=== PATIENT | male | born 1950 | race Caucasian/White ===

== ENCOUNTER → 2017-03-11 | Outpatient (CLI) | payer OTHER, MEDICARE | LOC: CIMAGING 15:55 | PROVIDERS: ATTEND Internal Medicine | DX: J90 Pleural effusion, not elsewhere classified (principal) | CPT/HCPCS: 71020; G0463 ==

== ENCOUNTER 2017-03-14 14:06 | Observation (INO) | payer OTHER, MEDICARE ==
[2017-03-14] MEDS ORDERED: ONDANSETRON DISINTEGRATING 4 MG TAB PO PRN (15:21)
[2017-03-14] MEDS ORDERED: ACETAMINOPHEN 325 MG TAB PO PRN (15:21)
[2017-03-14] MEDS ORDERED: ONDANSETRON 4 MG/2 ML VIAL IVP PRN (15:21)
--- NOTE | 2017-03-14 16:37 | GHP ---
[f rep st] HISTORY AND PHYSICAL DATE OF ADMISSION: 03/14/2017 CHIEF COMPLAINT: Fevers, anemia. REPORT ENDED /[id number]/MODL
[2017-03-14] MEDS ORDERED: NS 1,000 ML IV SCH (16:45)
--- NOTE | 2017-03-14 17:43 | GHP ---
[f rep st] HISTORY AND PHYSICAL DATE OF ADMISSION: 03/14/2017 CHIEF COMPLAINT: Fevers, anemia. HISTORY OF PRESENT ILLNESS: A pleasant 66-year-old male with prostate cancer, Mukund 7, history of melanoma, basal cell and squamous cell carcinoma, who was sent over from his primary care physician, Dr. Roman, with 2 weeks of low-grade fevers and anemia. He has felt "punky," over the last 2 weeks. Initially had sinus headache and congestion. Took some Advil and that resolved. Over the last couple of weeks he has had a low-grade temperature; 101 in clinic. Nonproductive cough started a couple days ago and was started on Z-ilan. Also, increased shortness of breath with walking over this time period, but no CP. Has had some PND over the last 2 weeks, no leg swelling. No nausea, vomiting, diarrhea. No melena or hematochezia. No weight loss. Has nocturia 4-5 times a night. No recent travel. Only pet is a dog. 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 Has had a colonoscopy within the last 3 years that was normal. No history of tobacco smoking. The patient has a known heart murmur. REVIEW OF SYSTEMS: I completed a 10-point review of systems, negative except as noted in the HPI. PAST MEDICAL HISTORY: 1. Meningitis. 2. Squamous cell skin cancer, basal cell skin cancer, melanoma, status post resection behind right ear. 3. Prostate cancer, Mukund 7. Was scheduled for prostatectomy next week, PSA 10 PAST SURGICAL HISTORY: Partial amputation of 1st right finger, tonsillectomy. HOME MEDICATIONS: Doxazosin and a probiotic. SOCIAL HISTORY: Lives in [place] with his . He works in construction. Remote marijuana when he was young. Beer, anywhere from 1-4 a week. FAMILY HISTORY: Brother with heart valve issues. Uncle with prostate cancer. Mother with basal cell skin cancer. ALLERGIES: No known drug allergies. PHYSICAL EXAMINATION: VITAL SIGNS: Temperature: Afebrile here. Blood pressure 159/80, heart rate is 89, respirations 18, 95% on room air. GENERAL: Well appearing, lying up in bed, is mildly pale. HEENT: PERRLA. Mild conjunctival pallor. Oropharynx clear. CV: Regular rate and rhythm. +2 murmur is present. LUNGS: No crackles, wheezing. ABDOMEN: Soft, nontender, nondistended. Positive bowel sounds. : No suprapubic tenderness. MUSCULOSKELETAL: 5/5 upper and lower extremity strength. No joint tenderness, synovitis, or erythema. NEURO: 2 through 12 intact. SKIN: Warm, dry, no rash or ulcerations. LAD: Positive left submandibular lymphadenopathy. PSYCH : Alert and oriented x3. Very pleasant, smiling during interview. LABORATORY DATA: WBC 4.6, hemoglobin 8.6, hematocrit 25, platelets 310. This is down from 10/06/2014, which H and H were 14 and 42. D-dimer is negative. Sodium 130, sodium 02/2017 was 139. Potassium 4.6, chloride 105, carbon dioxide 22, BUN 29. Creatinine is 1.1, baseline 0.9. Total bilirubin 1.5, AST 23, ALT 51, alk phos 97, total protein 6.5, albumin 4. Iron studies pending. LDH pending. Haptoglobin pending. CRP is pending. SPEP pending. PSA: 03/2016, 8.9; 03/14/2017, 10.9. TSH 2.83. Vitamin B12 and folate are pending. Urine 02/2018 with trace bacteria. Chest x-ray 03/11/2017: Personally reviewed by me. Minimal blunting of costophrenic angles. ASSESSMENT/PLAN: 1. Fevers: afebrile here and no leukocytosis. UA, CXR negative. Blood cultures were already drawn. Differential includes infection, cancer, clot. D- dimer was negative. He has had a recent colonoscopy. Consider CT scan to evaluate for mass. I have consulted Dr. Guo to evaluate patient in the morning. No antibiotics warranted at this time. Check an echocardiogram to rule out endocarditis. 2. Normocytic anemia: ddx: blood loss, hemolysis versus bone marrow suppression. LDH, haptoglobin, coags are pending. Check peripheral smear. Denies any acute blood loss. Recent colonoscopy was negative. SPEP is pending , as well as B12, folate. LFTs within normal. Iron studies pending. No emergent transfusion needs. 3. History of Clostridium difficile: After clindamycin a year ago. No diarrhea now. 4. SOB: URI? Mild effusion, edema on exam. BNP, TTE pending 5. Diet: Regular. 6. Deep venous thrombosis prophylaxis: Sequential compression device. Disposition: Patient warrants observation admission given anemia and fevers requiring further testing. /[id number]/MODL MTDD
[2017-03-14 18:46] LABS: HEMATOCRIT 22.3 % (40.0-51.0)
[2017-03-14 18:54] LABS: APTT 28.8 SEC (23.0-38.0)
[2017-03-14] MEDS ORDERED: BENZONATATE 100 MG CAP PO PRN (19:14)
[2017-03-14 19:19] LABS: INR 1.13 (0.83-1.16); PROTIME(PATIENT) 14.4 SEC (12.0-15.0)
[2017-03-14] MEDS ORDERED: TERAZOSIN 10 MG PO SCH (21:00)
[2017-03-14] MEDS ORDERED: TERAZOSIN HCL 10 MG PO SCH (21:00)
[2017-03-14] MEDS ORDERED: AZITHROMYCIN 250 MG TAB PO SCH (21:00)
--- NOTE | 2017-03-14 21:24 | GCON ---
[f rep st] CONSULTATION DATE OF CONSULTATION: 03/14/2017 HISTORY OF PRESENT ILLNESS: The patient is a very pleasant 66-year-old male, who has been seen by my colleague, Dr. Kearney, for history of melanoma in 1998, presenting as cervical adenopathy. This wa s dissected, and he received aly interferon. There was no known primary, and there was no evidence of recurrence. He also has a history of prostate cancer diagnosed a number of years ago, which has b lukas observed. However, he is scheduled for a radical prostatectomy in the near future. However, abo mo 3 weeks ago, he developed a cough and low-grade fevers. He has been treated with a Z-Leland, but the cough has been persistent. In the office today with Dr. Roman, a CBC showed a significant anemia. H is white count was 4.67, with 76% neutrophils. Hemoglobin was 8.6, hematocrit 25.1, MCV 91.3, and pl atelets normal at 310. A prior hemoglobin from September of 2014 was mildly low at 14.1. He says prior to 3 or 4 weeks ago, he had felt really pretty good. He continues to work on a regular basis. He jacy ed any new pains and denied any weight loss. His energy level had been quite good. PAST MEDICAL HISTORY: Significant for melanoma and prostate cancer. There is a history, I believe, of a vertebral fracture and a traumatic amputation of the tip of one of his fingers within the last y ear. FAMILY HISTORY: Noncontributory. REVIEW OF SYSTEMS: Negative for 10 systems except as discussed in the HPI. PHYSICAL EXAMINATION: VITAL SIGNS: Currently, he is a pleasant, alert male, coughing frequently. V ITAL SIGNS: Blood pressure 159/80, heart rate 89, O2 sat 95%, temperature currently 98.3. HEENT: H e is not icteric. NECK: I detect no cervical adenopathy. He has a well-healed right neck dissectio n, without evidence of recurrence. No axillary or inguinal adenopathy is palpable. LUNGS: Show pre tty significant inspiratory and expiratory wheezes. CARDIAC: Exam is unremarkable. ABDOMEN: Obese , without obvious organomegaly. EXTREMITIES: Show no edema. SKIN: Exam is unremarkable. ADDITIONAL LABORATORY EXAMINATION: Shows a normal TSH. Ferritin, B12, and folate are pending. His last PSA that I can detect was 10.9. Sedimentation rate today is 74. A chest x-ray done 2 days ago shows possibly minimal costophrenic gutter blunting. The lungs are otherwise clear. I should note t hat the patient is a lifelong nonsmoker, although has smoked marijuana in the past. IMPRESSION: Patient with significant upper respiratory infection symptoms over the last 2-3 weeks wi th a low-grade fever, now presenting with normochromic normocytic anemia. He has a high sedimentatio n rate, and certainly a component of inflammation and marrow suppression from this could be playing a role. His white cell count and platelets are normal. Evaluation including iron studies and B12 is pending. I would like to add a reticulocyte count, serum protein electrophoresis, serum free light c michelle analysis, and a direct Radha. The respiratory panel including influenza is pending. If the si tuation does not clarify itself, I would have a low threshold for a CT scan of the chest. Our servic e will follow with you. /[id number]/MODL
[2017-03-14 23:38] VITALS: O2SAT 95
[2017-03-15] MEDS ORDERED: HYDROcodone/CPM TUSSIONEX 5 ML UDSYR PO PRN (01:11)
[2017-03-15] MEDS ORDERED: GUAIFENESIN/DM 10 ML UDCUP PO PRN (01:11)
[2017-03-15 05:40] LABS: HEMATOCRIT 23.2 % (40.0-51.0); HEMOGLOBIN 8.2 g/dL (13.7-17.5); MEAN CELL HEMOGLOBIN 32.5 pg (27.9-34.1); MEAN CELL HEMOGLOBIN CONCENTR. 35.3 g/dL (32.4-36.7); MEAN CELL VOLUME 92.1 fL (81.5-99.8); RED BLOOD CELL COUNT 2.52 10^6/uL (4.40-6.38); RED CELL DISTRIBUTION WIDTH 16.9 % (11.5-15.2)
[2017-03-15] MEDS ORDERED: Herbals/Supplements -Info Only PO SCH (09:00)
[2017-03-15] MEDS ORDERED: CHOLECALCIFEROL VIT D3 1,000 UNITS TAB PO SCH (09:00)
[2017-03-15] MEDS ORDERED: ENOXAPARIN 40 MG/0.4 ML SYR SC SCH (09:00)
--- NOTE | 2017-03-15 10:47 | SOAPPROG ---
SOAP Progress Note Assessment/Plan: Assessment: 1. URI, Rhinovirus 2.Normochromic, normocytic anemia, underproduction, iron stores ok, zoila neg, b12 ok. I think this is most consistent with his intercurrent illness, would repeat cbc with pcp in 3 weeks or so, if not better will need further eval Plan:See above, ? home 03/15/17 10:43 Subjective: Cough Objective: Vital Signs Temp Pulse Resp BP Pulse Ox 97.9 F 75 16 146/59 H 95 03/15/17 08:00 03/15/17 08:00 03/15/17 08:00 03/15/17 08:00 03/15/17 08:00 Microbiology 03/14/17 16:40 Respiratory Panel (PCR) - Final Nasal, Sinus - Swab Human Rhinovirus/Enterovirus Laboratory Results 03/15/17 05:14 03/14/17 03/15/17 03/16/17 05:59 05:59 05:59 Intake Total 1854 Balance 1854 PT 14.4 SEC (12.0-15.0) 03/14/17 18:30 INR 1.13 (0.83-1.16) 03/14/17 18:30 Physical Exam - Physical Exam General Appearance: alert
[2017-03-15 12:21] VITALS: BP 147/72; PULSE 60; RESP 18; TEMP 98.2
--- NOTE | 2017-03-15 15:51 | ECHO ---
[email or web address] [address] [address] Main: [phone] Fax: [email or web address] Echocardiogram Name: VENICE MONSON MR#: [id number] Study Date: 03/15/2017 Study Time: 10:30 AM Date of : 1950 Age: 66 year(s) Height: ( ) Weight: ( ) BSA: Gender: Male Examination: Echo Indication: Fevers/eval for endocarditis Image Quality: Contrast: Requested by: Tonya Loza BP: 146 mmHg/59 mmHg Heart Rate: Rhythm: Indication: Fevers/eval for endocarditis Procedure Staff Vector Control Specialist: Gayatri Gonzales Reading Physician: Liz Heller Requesting Provider: Conclusions: Normal size left ventricle. No LV hypertrophy. Normal global systolic LV function. The ejection fraction is estimated to be 65-70 %. No regional wall motion abnormality. Mildly dilated right ventricle. Normal RV function. Mild mitral valve regurgitation is present. The aortic valve is normal in appearance and function. Small to moderate pericardial effusion. No cardiac tamponade No obvious valvular vegetation Measurements: Chambers Valvular Assessment AV/MV Valvular Assessment TV/PV Normal Normal Normal Name Value Range Name Value Range Name Value Range EF Range: 65-70 % Continued Measurements: Findings: Left Ventricle: Normal size left ventricle. No LV hypertrophy. Normal global systolic LV function. The ejection fraction is estimated to be 65-70 %. No regional wall motion abnormality. Right Ventricle: Mildly dilated right ventricle. Normal RV function. There is a moderator band noted in the right ventricle. Patient: EVNICE MONSON Study Date: 03/15/2017 Page 1 of 2 10:30 AM Left Atrium: The left atrium is normal in size. Right Atrium: The right atrium is normal in size. Mitral Valve: The mitral valve is normal in appearance and function. Mild mitral valve regurgitation is present. Aortic Valve: The aortic valve is normal in appearance and function. Tricuspid Valve: The tricuspid valve is normal in appearance and function. Trivial tricuspid valve regurgitation. Pulmonic Valve: The pulmonic valve is normal in appearance and function. Aorta: The aorta is normal. Pericardium: Small to moderate pericardial effusion. Slight RA collapse.. (No Signature Object) Patient: VENICE MONSON Study Date: 03/15/2017 Page 2 of 2 10:30 AM D:_[id number]
[2017-03-15 17:20] LABS: IG KAPPA FREE LIGHT CHAIN 1.91 mg/dL; IG LAMBDA FREE LIGHT CHAIN 1.51 mg/dL; KAPPA/LAMBDA RATIO 1.26
--- NOTE | 2017-03-15 17:39 | ASDISCHSUM ---
Discharge Information Plan Status:Home with No Needs Medically Cleared to Leave: Discharge Date:03/15/2017 01:31 PM CM D/C Disposition:Home, Routine, Self-Care ADT D/C Disposition:Home, Routine, Self-Care Projected Discharge Date:03/15/2017 01:31 PM Transportation at D/C: Discharge Delay Reason: Follow-Up Date:03/15/2017 01:31 PM Discharge Slot: Final Diagnosis: Placement Information Patient Contact Information Contact Name:NILDA Relationship: Address:[address] City:[place] Alternate Phone: [facility]/Zip Code:[place] [address] Email: Financial Information Financial Class: Primary Plan Desc:MEDICARE OUTPATIENT Primary Plan Number:[id number] Secondary Plan Desc:[employer]/MDR SUPPLEMENT Secondary Plan Number:[id number] Assessment Information Intervention Information Intervention Type:*RICHTER-Signed Date of Service:03/15/2017 10:08 AM Patient Type:Observation Staff Member:Kelsey Waters Hours: Discipline: Severity: Comment:
--- NOTE | 2017-03-15 17:43 | GDS ---
[f rep st] DISCHARGE SUMMARY DISCHARGE DIAGNOSES: Include: 1. Acute viral upper respiratory infection secondary to rhinovirus/enterovirus. 2. Prostate cancer. Baxter 7. Anticipate prostatectomy next week. 3. History of meningitis. 4. History of melanoma, status post resection. 5. Normocytic anemia, under evaluation. HISTORY OF PRESENT ILLNESS: A 66-year-old male with a history of prostate cancer, presents with comp laints of persistent shortness of breath over the course of the last several weeks. For details of nelly plaza's initial presentation, please see the History and Physical dated 03/14/2017. CONSULTATIVE SERVICES: Include Oncology. PROCEDURES: On 03/14/2017, patient had a transthoracic echocardiogram which shows normal LV size and function. HOSPITAL COURSE: By issue: 1. Shortness of breath. Patient had chest x-ray imaging on the outside that was negative for any in filtrates. We did identify a viral pathogen to explain his symptoms. He will be discharged with [facility] portive care and outpatient followup by [facility]. We have no concern for cardiac cause of his shortness of breath, based on his normal transthoracic echocardiogram. 2. Prostate cancer. He is being followed closely by [facility] and is anticipating prostatectomy next wee k. 3. Normocytic, normochromic anemia. [facility] is investigating this. Patient did not meet transfusion c carina during this hospital stay. He will follow in the outpatient clinic. MEDICATIONS AT THE TIME OF TRANSFER: Please reference the med rec printed on 03/15/2017 FOLLOWUP APPOINTMENTS: Include with [facility] for followup of his prostate cancer and normocytic anemia. PENDING STUDIES: At the time of this dictation, are none. TIME SPENT: I spent greater than 30 minutes in the planning and coordination of this discharge. /[id number]/MODL
== END 2017-03-15 13:31 | disposition home or self-care (01) ==
LOC: F3E 15:07
PROVIDERS: ADMIT Hospitalist; ATTEND Hospitalist
DX: J00 Acute nasopharyngitis [common cold] (principal); D64.9 Anemia, unspecified; C61 Malignant neoplasm of prostate; Z85.820 Personal history of malignant melanoma of skin
CPT/HCPCS: 93306; G0378; G0379; 83010-90

== ENCOUNTER → 2017-03-22 | Outpatient (CLI) | payer OTHER, MEDICARE ==
[~2017-03-22] MED LIST: IOPAMIDOL (ISOVUE-300) 100 ML BTL ONE
== END ==
LOC: CIMAGING 10:17
PROVIDERS: ATTEND Internal Medicine
DX: R59.0 Localized enlarged lymph nodes (principal); R91.1 Solitary pulmonary nodule; I31.3 Pericardial effusion (noninflammatory); I25.10 Atherosclerotic heart disease of native coronary artery without angina pectoris; D64.9 Anemia, unspecified; Z85.820 Personal history of malignant melanoma of skin; Z85.46 Personal history of malignant neoplasm of prostate
CPT/HCPCS: 71260; 74177; Q9967

== ENCOUNTER 2017-04-25 09:59 | Day surgery (SDC) | payer OTHER, MEDICARE ==
[2017-04-25] MEDS ORDERED: CLINDAMYCIN 900 MG/DEXTROSE 50 ML IV ONE (10:14)
[2017-04-25] MEDS ORDERED: LR 1,000 ML IV ONE (10:20)
[2017-04-25 10:42] VITALS: PULSE 63
[2017-04-25] MEDS ORDERED: cefOXitin SODIUM 2 GM in D5W 100 ML IV ONE (11:30)
--- NOTE | 2017-04-25 12:28 | PDANEPAE ---
ANE History of Present Illness supraclavicular LN biopsy ANE Past Medical History - Cardiovascular History Hx Hypertension: No Hx Arrhythmias: No Hx Chest Pain: No Hx Coronary Artery / Peripheral Vascular Disease: No Hx CHF / Valvular Disease: No Hx Palpitations: No - Pulmonary History Hx COPD: No Hx Asthma/Reactive Airway Disease: No Hx Recent Upper Respiratory Infection: No Hx Oxygen in Use at Home: No Hx Sleep Apnea: No Sleep Apnea Screening Result - Last Documented: Negative Pulmonary History Comment: chronic bronchitis-Rhinovirus late Feb - Neurologic History Hx Cerebrovascular Accident: No Hx Seizures: No Hx Dementia: No Neurologic History Comment: 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 - Endocrine History Hx Diabetes: No - Renal History Hx Renal Disorders: No Renal History Comment: nocturia x3-4 . will have prostatectomy in future. - Liver History Hx Hepatic Disorders: No - Neurological & Psychiatric Hx Hx Neurological and Psychiatric Disorders: No - Cancer History Hx Cancer: Yes Cancer History Comment: prostate. cutaneous melanoma - Congenital Disorder History Hx Congenital Disorders: No - GI History Hx Gastrointestinal Disorders: No - Other Health History Other Health History: enlarged lymph node-R supraclavicluar - Chronic Pain History Chronic Pain: No - Surgical History Prior Surgeries: prostate bx-w/GA. excision lymph R neck area-1997. finger- tip surgery. T and A child ANE Review of Systems Review of systems is: negative Review of Systems: - Exercise capacity METS (RN): 4 METS ANE Patient History - Allergies Allergies/Adverse Reactions: Penicillins Allergy (Verified 04/25/17 11:20) Hives - Home Medications Home medications: home medication list seen and reviewed Home Medications: Cholecalciferol Vit D3 [Vitamin D3 (*)] 1,000 units PO DAILY 03/14/17 [Last Taken 04/24/17] Herbals/Supplements -Info Only 1 ea PO DAILY 03/14/17 [Last Taken 04/24/17] Terazosin HCl 10 mg PO HS 03/14/17 [Last Taken 04/24/17] - NPO status NPO Since - Liquids (Date): 04/25/17 NPO Since - Liquids (Time): 08:30 NPO Since - Solids (Date): 04/24/17 NPO Since - Solids (Time): 19:00 - Anes Hx Anes Hx: no prior problems - Smoking Hx Smoking Status: Never smoked - Family Anes Hx Family Anes Hx: none ANE Labs/Vital Signs - Vital Signs Blood Pressure: 155/68 Heart Rate: 63 Respiratory Rate: 14 O2 Sat (%): 96 Height: 177.8 cm Weight: 95.254 kg ANE Physical Exam - Airway Neck exam: FROM Mallampati Score: Class 1 Mouth exam: normal dental/mouth exam - Pulmonary Pulmonary: no respiratory distress - Cardiovascular Cardiovascular: regular rate and rhythym - ASA Status ASA Status: II
[2017-04-25] MEDS ORDERED: LIDOCAINE 1% 300 MG/30 ML SDV ONE (12:39)
[2017-04-25] MEDS ORDERED: BUPIVACAINE 0.5% 30 ML SDV ONE (12:40)
[2017-04-25] MEDS ORDERED: SODIUM BICARBONATE 10 MEQ/10 ML SYR IVP ONE (12:40)
--- NOTE | 2017-04-25 12:46 | PDHPUP ---
History & Physical Update H&P update statement: This history and physical update is based on an assessment of the patient which was completed after admission or registration (within 24 hours), but prior to the surgery/procedure. H&P update: H&P reviewed & patient examined, no change in patient's condition since H&P completed
[2017-04-25] MEDS ORDERED: ONDANSETRON 4 MG/2 ML VIAL ONE (13:01)
[2017-04-25] MEDS ORDERED: DEXAMETHASONE 4 MG/ML VIAL ONE (13:01)
[2017-04-25] MEDS ORDERED: LIDOCAINE 2% 100 MG/5 ML SYR ONE (13:01)
[2017-04-25] MEDS ORDERED: fentaNYL 100 MCG/2 ML INJ ONE (13:02)
[2017-04-25] MEDS ORDERED: PROPOFOL 200 MG/20 ML VIAL ONE (13:02)
[2017-04-25] MEDS ORDERED: BUPIVACAINE 0.25% 30 ML SDV ONE (13:37)
--- NOTE | 2017-04-25 13:58 | POSTANESTH ---
Post Anesthetic Evaluation Cardiovascular Status: Normal, Stable, Similar to Pre-Op Cond Respiratory Status: Normal, Stable, Similar to Pre-op Cond. Level of Consciousness/Mental Status: Can Participate in Eval, Mildly Sleepy, Arousable Pain Control: Adequate, Prn Tx Ordered Nausea/Vomiting Control: Adequate, Prn Tx Ordered Complications Possibly Related to Anesthesia: None Noted
--- NOTE | 2017-04-25 13:59 | POSTOPPROG ---
Post Op Note Date of Operation: 04/25/17 Surgeon: Guy Rain Anesthesiologist: Dipti Anesthesia: IV Sedation, LMA Pre-op Diagnosis: Hx of melanoma Post-op Diagnosis: same Procedure: Right supraclavicular LN biopsy Findings: small node excised completely Inf/Abcess present in the surg proc area at time of surgery?: No EBL: Minimal Specimen(s): Right supraclavicular lymph node
[2017-04-25] MEDS ORDERED: DEXAMETHASONE 4 MG/ML VIAL IVP PRN (14:10)
[2017-04-25] MEDS ORDERED: OXYCODONE/APAP 5/325 TAB PO PRN (14:10)
[2017-04-25] MEDS ORDERED: HYDROCODONE/APAP 5/325 TAB PO PRN (14:10)
[2017-04-25] MEDS ORDERED: PROMETHAZINE HCL 25 MG/ML INJ IVP PRN (14:10)
[2017-04-25] MEDS ORDERED: HYDROmorphONE/DILAUDID 1 MG/ML INJ IVP PRN (14:10)
[2017-04-25] MEDS ORDERED: ACETAMINOPHEN 500 MG TAB PO PRN (14:10)
[2017-04-25] MEDS ORDERED: ONDANSETRON 4 MG/2 ML VIAL IVP PRN (14:10)
[2017-04-25] MEDS ORDERED: fentaNYL 100 MCG/2 ML INJ IVP PRN (14:10)
[2017-04-25] MEDS ORDERED: MEPERIDINE 25 MG/ML SYR IVP PRN (14:10)
[2017-04-25] MEDS ORDERED: LABETALOL HCL 5 MG/ML 20 ML MDV IVP PRN (14:10)
[2017-04-25] MEDS ORDERED: NALOXONE HCL 0.4 MG/ML INJ IVP PRN (14:10)
[2017-04-25 14:24] VITALS: RESP 15; TEMP 99
[2017-04-25 14:50] VITALS: BP 139/66; O2SAT 94
--- NOTE | 2017-04-26 14:46 | GOP ---
[f rep st] OPERATIVE REPORT DATE OF OPERATION: 04/25/2017 SURGEON: Guy Rain MD HOSPITALITY COORDINATOR: None. ANESTHESIA: General endotracheal. ANESTHESIOLOGIST: Dr. Seth. PREOPERATIVE DIAGNOSIS: History of melanoma with suspicious lymphadenopathy. POSTOPERATIVE DIAGNOSIS: History of melanoma with suspicious lymphadenopathy. PROCEDURE PERFORMED: Right supraclavicular excisional lymph node biopsy. FINDINGS: Suspicious lymph node located on recent PET scan, successfully excised. SPECIMENS: Right supraclavicular lymph node. ESTIMATED BLOOD LOSS: 5 cc. DESCRIPTION OF PROCEDURE: The patient was greeted in the preoperative suite. Once again, risks, heidi efits, and alternatives were discussed. Consent was signed. He was then brought back to the operati ve suite, placed on the OR table in a supine position. After all anesthesia machines, including SCDs , were on and functioning, World Health Organization time-out was performed. The patient was then sutton ccessfully intubated after successfully prepping and draping his right neck and shoulder region. I m estella a supraclavicular incision approximately 3 cm in length, carried it down through the skin and sub cutaneous tissue, and divided the platysma. Once successfully in the cavity, I digitally inspected a nd identified the lymph node, which was just posterior to the patient's clavicle. Using a combinatio n of electrocautery and blunt dissection, I successfully identified lymph node; it was grasped with a n Allis clamp and successfully dissected free of its surrounding tissues. The lymphovascular vessels leading to it were successfully hemoclipped. The specimen was then removed. Hemostasis was noted t o be excellent. The area was then irrigated and closed in layers. The platysma was closed with a ru nning 3-0 Vicryl and the skin with a running 4-0 Monocryl over which Dermabond was placed. The patie nt was then extubated in the operative suite and taken to the PACU in satisfactory condition. DRAINS: None. COUNTS: All counts were reported as correct x2. /[id number]/MODL
[2017-04-27 12:35] LABS: FINAL DIAGNOSIS See Comments; MICROSCOPIC DESCRIPTION See Comments
== END 2017-04-25 14:57 | disposition home or self-care (01) ==
LOC: FSGY 09:59
PROVIDERS: ATTEND Surgery
PROC: 07B10ZX Excision of Right Neck Lymphatic, Open Approach, Diagnostic (ICD-10-PCS; principal; 2017-04-25 11:30)
DX: R59.0 Localized enlarged lymph nodes (principal); C61 Malignant neoplasm of prostate; Z85.820 Personal history of malignant melanoma of skin
CPT/HCPCS: 88184-90; 88185-91; J0171; J0694; J1100; J2001; J2405; J2704; J3010